=== PATIENT | male | born 1985 | race Caucasian/White ===

== ENCOUNTER 2016-08-04 22:05 | Emergency (ER) | payer BC ==
[~2016-08-04] VITALS: Ht 172.7 cm; Wt 88.5 kg
[2016-08-05] MEDS ORDERED: TYLENOL500 MG PO (02:22)
[2016-08-05] MEDS ORDERED: ADVIL200 M2 PO (02:22)
== END 2016-08-04 23:58 | disposition short-term general hospital (02) ==
LOC: ER 22:05
DX: R68.84 Jaw pain (principal); F17.210 Nicotine dependence, cigarettes, uncomplicated